=== PATIENT | female | born 1955 ===

== ENCOUNTER 2025-06-03 07:00 | Day surgery (SDC) | payer OTHER ==
[2025-06-01 13:32] VITALS: BP 150/90
[~2025-06-03] VITALS: Ht 157.5 cm; Wt 97.1 kg
[~2025-06-03 07:00] MED LIST: LABETALOL HCL100 MG PO; NORVASC2.5 M1 PO
[2025-06-03] MEDS ORDERED: CHLORHEXIDINE GLUCONATE 120 ML BOTTLE TOP ONE (09:07)
[2025-06-03] MEDS ORDERED: POVIDONE-IODINE 118 ML BOTT TOP ONE (09:07)
[2025-06-03] MEDS ORDERED: CEFAZOLIN SODIUM 1,000 MG VIAL ONE (09:42)
== END 2025-06-03 16:05 | disposition home or self-care (01) ==
LOC: CIR.AMB 07:00
PROVIDERS: ATTEND Obstetrics & Gynecology
DX: N95.0 Postmenopausal bleeding (principal); D25.0 Submucous leiomyoma of uterus; N85.8 Other specified noninflammatory disorders of uterus